=== PATIENT | male | born 1960 | race American Indian/Alaskan Native ===

== ENCOUNTER 2021-02-10 09:28 | Day surgery (SDC) | payer MEDICARE, BC ==
[~2021-02-10 09:28] MED LIST: SODIUM CHLORIDE 0.9% 1000 ML 1,000 ML IV SCH
[2021-02-10] MEDS ORDERED: LIDOCAINE MPF (2%) 20 MG/1 ML VIAL 5 ML ONE (10:00)
[2021-02-10] MEDS ORDERED: propofoL 200 MG/20 ML VIAL IV ONE (11:15)
--- NOTE | 2021-02-10 11:35 | Anesthesia Consultation ---
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
--- NOTE | 2021-02-10 11:35 | Anesthesia Day of Surgery ---
Anesthesia Day of Surgery - Day of Surgery Patient Examined: Yes Patient H&P Reviewed: Yes Patient is NPO: Yes
--- NOTE | 2021-02-10 11:38 | Procedure Note ---
Date of procedure: 02/10/21 Pre-op diagnosis: Colon Polyp Screening/ P/H/o Colon Polyps Post-op diagnosis: other (No Colon Polyps noted/ No Diverticular Disease noted/ Normal, Terminal Ileal Mucosa/ Minor, Internal Hemorrhoid) Procedure: Colonoscopy Anesthesia: MAC Surgeon: AJAY ZARAGOZA Estimated blood loss: none Pathology: none Condition: stable Disposition: same day (Resume home medication and follo up in 1 to 2 weeks ([phone]).)
--- NOTE | 2021-02-10 13:09 | Post Anesthesia Evaluation ---
- Post Anesthesia Evaluation Patient Participated: Yes Airway Patent: Yes Stable Respiratory Function: Yes Nausea/Vomiting: No Temp > 96.8F: Yes Pain Manageable: Yes Adequeate Hydration: Yes Anesthesia Complications: No
--- NOTE | 2021-02-10 13:39 | Operative Report ---
DATE OF SURGERY: 02/10/2021 PROCEDURE: Colonoscopy. INDICATIONS: This is a 60-year-old -[place] gentleman with a history of seizure disorder, prior history of colon polyps. His last colonoscopy was several years ago. Repeat colonoscopy was done to make sure there was not any recurrence of any polyps. DESCRIPTION OF PROCEDURE: Procedure was done after getting informed consent with MAC anesthesia. Initial rectal exam was unremarkable. Instrument was passed through the rectum onto the cecum, which was identified with the ileocecal valve and the appendiceal orifice. The cecum was also visualized on the retroverted view. No additional pathology was noted. The scope was withdrawn to the hepatic flexure and reintroduced. Again, no additional pathology was seen. The terminal ileum was intubated, showed normal mucosa. The cecum, ascending colon, transverse colon, descending colon, and sigmoid showed normal mucosa. There were no polyps, evidence of colitis or diverticular disease noted. The rectum showed some minor internal hemorrhoid on the retroverted view. There was no bleeding associated with the procedure. No complications associated with the procedure. ASSESSMENT: History of colon polyps, colon polyp screening, no colon polyps noted. No diverticular disease noted. Normal terminal ileum. Minor internal hemorrhoid. PLAN: Plan is to have the patient resume home medication and follow up in the office in 1-2 weeks' time. Procedure was done in the GI lab with assistance of the GI lab team, which included the GI nurse, the health information tech and with assistance of anesthesia. TID: [id number] RECEIPT: [id number] ANDREA/KATIE
[2021-02-10 19:51] VITALS: BP 125/89
== END 2021-02-10 09:29 | disposition home or self-care (01) ==
LOC: GIO 09:28
DX: Z12.11 Encounter for screening for malignant neoplasm of colon (principal); K64.8 Other hemorrhoids; I10 Essential (primary) hypertension; Z86.010 Personal history of colon polyps; Z86.73 Personal history of transient ischemic attack (TIA), and cerebral infarction without residual deficits; Z79.899 Other long term (current) drug therapy
CPT/HCPCS: G0105; J2704; J7030